=== PATIENT | male | born 1935 | race Caucasian/White ===

== ENCOUNTER → 2016-11-29 | Outpatient (CLI) | payer OTHER, MEDICARE ==
--- NOTE | 2016-11-29 13:48 | DI ---
XR CXR 2VW PA/LAT,11/29/2016 12:24 PM: Clinical History: Chest wall pain. Previous Exam: None at this facility. Findings: PA and lateral views of the chest are obtained, and demonstrate at least 2 well-circumscribed densiti es overlying the right lung. There appears to be a third within the right lung apex as well. The larg est is the one in the right lung apex measuring 3.7 cm. There is also a 2.7 cm density which is not a s well-circumscribed within the right midlung field and an 18 mm density in the right upper lobe. Skeletal structures are unremarkable. The cardiomediastinum is also unremarkable. Impression: Right-sided pulmonary masses. Recommend CT chest for further evaluation.
== END ==
LOC: MOB RAD 12:26
PROVIDERS: ATTEND Physician Assistant Medical
DX: R07.89 Other chest pain (principal); S20.212A Contusion of left front wall of thorax, initial encounter; W23.0XXA Caught, crushed, jammed, or pinched between moving objects, initial encounter; Y93.89 Activity, other specified; Y92.73 Farm field as the place of occurrence of the external cause
CPT/HCPCS: 71020; 99213